=== PATIENT | female | born 1970 | race Caucasian/White ===

== ENCOUNTER 2025-06-27 08:24 | Day surgery (SDC) | payer MEDICARE, MEDICAID, SELFPAY ==
--- OUTSIDE RECORDS SUMMARY | 2025-05-30 17:45 | XMS_ITS | Clinical Summary ---
Author Organization [facility] Address [address] [place] [address] Phone Care Team Providers Care Assistant Manager Retail Name Role Phone Donovan Berry Primary Care Provider [phone] Donovan Berry Unavailable [phone] Medications buprenorphine-n aloxone (Suboxone) 8-2 mg SL film film, SL, daily, Entered: 07/12/20 12:57:00 EST 07/12/2020 Active diazepam (VALIUM ORAL) Entered: 07/12/20 12:56:00 EST 07/12/2020 Active escitalopram (Lexapro) 20 mg tablet mg, tab, PO, daily, Entered: 07/12/20 12:57:00 EST 07/12/2020 Active gabapentin (Neurontin) 800 mg tablet mg, tab, PO, TID, Entered: 07/12/20 12:58:00 EST 07/12/2020 Active insulin regular (HumuLIN R,NovoLIN R) 100 unit/mL injection Dispense 3 mL vial, Subcutaneous, OUT-PT as directed, Special Instructions: Use as directed, Refills: 11, Entered: 07/12/20 12:56:00 EST 07/12/2020 Active levothyroxine sodium (SYNTHROID ORAL) PO, daily, Entered: 07/12/20 12:58:00 EST 07/12/2020 Active Social History Tobacco Use Types Packs/Day Years Used Date Smoking Tobacco: Never Assessed Comments Unknown Sex and Gender Information Value Date Recorded Sex Assigned at Not on file Legal Sex Female 2:57 AM EDT Gender Identity Not on file Sexual Orientation Not on file Plan of Treatment Not on file Care Teams Assistant Manager Retail Relationship Specialty Start Date End Date Donovan Berry [address] [place] [address] PCP - General 09/12/19 Donovan Berry [address] [place] [address] PCP - Clinical PCP 09/12/19
[2025-06-25 09:39] VITALS: BMI 26.1
[2025-06-27] VITALS (10 sets, daily range): BP systolic 104–134; BP diastolic 55–70; PULSE 76–82; RESP 10–20; TEMP 36.1–36.6; O2SAT 96–100
[2025-06-27] MEDS: Lactated Ringers 1,000 ML 100 ML IVCONT (09:31)
[2025-06-27 09:36] LABS: Glucose, Whole Blood 100 mg/dL (60-115)
--- NOTE | 2025-06-27 10:50 | HO.ANESPROP2 ---
Documented by User: Isha Fox NP 06/26/25 09:56 HPI - Anesthesia Eval Consult details Narrative: 55yo F for Bilateral Medial Rectus Eye Muscle Recession Medically optimized per PCP Chronic opioids Anesthesia Pre-Procedure Meds Is the patient on any of the following meds?: GLP1/DPP4 PMFSH Past Medical History Medical History (Updated 06/25/25 @ 09:37 by Fabienne Gamino RN) Tobacco dependence Chronic pain Thyroid disease Depression Vitamin D deficiency Liver disease Asthma Obesity Insomnia Opioid dependence Strabismus Paralytic ileus Hiatal hernia Esophageal dysmotility Complex regional pain syndrome i of left lower limb DVT (deep venous thrombosis) (~01/30/25) Closed fracture of distal phalanx of great toe (~10/10/24) Smoker Multilobar lung infiltrate Gastroparesis due to DM Benzodiazepine withdrawal Legal blindness Polyneuropathy Diabetic foot ulcer Peripheral edema Torsion of ovary Open wound of left foot Chest wall pain Abscess of skin and subcutaneous tissue ADD (attention deficit disorder) Cystitis Fatigue Palpitations Edema of lower extremity Fracture of great toe Diabetic peripheral neuropathy Diabetes Fall Solitary lung nodule Nausea Arthropathy Cellulitis Uterine prolapse Slow transit constipation GERD (gastroesophageal reflux disease) COPD (chronic obstructive pulmonary disease) PVD (peripheral vascular disease) Atherosclerosis of artery Anxiety Gout, arthritis Gout Hyperlipidemia Disorder of nervous system due to type 2 diabetes mellitus Surgical History Surgical History (Updated 06/25/25 @ 09:27 by Fabienne Gamino RN) Hx of laparoscopy Hx of total hysterectomy History of nasal surgery H/O colonoscopy Hx of section Social History Social History Are you a primary career development consultant to a significant other at home: No Do you presently have visiting nurse or other home services: Yes Patient Tobacco Use Status: Current everyday Tobacco user Tobacco use type: Cigarette Cigarette Packs Per Day: 0.5 Cigarettes Per Day: 10.0 Use of substances other than those prescribed or required for medical reasons: No Have you been hit, kicked, punched, or otherwise hurt by someone within the past year? If so, by whom?: No Advance Directives: No Advance Directives Information Provided: Yes Advance Directives on File: No Patient : No : No Poor oral hygiene: Yes Meds Allergies Allergy/AdvReac Type Severity Reaction Status Date / Time adhesive tape Allergy Unknown Verified 06/25/25 08:16 droperidol Allergy Unknown Verified 06/25/25 08:16 insulin glargine (From Allergy Hives Verified 06/25/25 08:16 Lantus U-100 Insulin) insulin lispro (From Humalog Allergy Rash Verified 06/25/25 08:16 Mix) insulin lispro protamine Allergy Rash Verified 06/25/25 08:16 (From Humalog Mix) metoclopramide Allergy Unknown Verified 06/25/25 08:16 Home Medications ?Medication ?Instructions ?Recorded ?Confirmed ?Last Taken ?Type albuterol sulfate 90 mcg/actuation 2 puff inhalation Q4-6H PRN 06/25/25 06/25/25 Unknown History aerosol inhaler (Ventolin HFA) Shortness Of Breath Or Wheezing atorvastatin 20 mg tablet 20 mg PO DAILY 06/25/25 06/25/25 Unknown History cholecalciferol (vitamin D3) 25 25 mcg PO DAILY 06/25/25 06/25/25 Unknown History mcg (1,000 unit) tablet dextroamphetamine-amphetamine 20 1 tab PO QAM 06/25/25 06/25/25 Unknown History mg tablet dextroamphetamine-amphetamine 30 1 tab PO QPM 06/25/25 06/25/25 Unknown History mg tablet diazepam 10 mg tablet 10 mg PO TID PRN Anxiety 06/25/25 06/25/25 Unknown History estradiol 0.01% (0.1 mg/gram) 1 appl vaginal BEDTIME 06/25/25 06/25/25 Unknown History vaginal cream fluconazole 150 mg tablet 150 mg PO QWEEK 06/25/25 06/25/25 Unknown History furosemide 40 mg tablet 80 mg PO DAILY 06/25/25 06/25/25 Unknown History gabapentin 800 mg tablet 800 mg PO QID 06/25/25 06/25/25 Unknown History levothyroxine 100 mcg tablet 100 mcg PO DAILY 06/25/25 06/25/25 Unknown History lidocaine 5 % topical ointment 1 appl topical Q4-6H PRN Pain 06/25/25 06/25/25 Unknown History morphine 15 mg immediate release 15 mg PO QID PRN Pain 06/25/25 06/25/25 Unknown History tablet morphine 60 mg tablet,extended 60 mg PO BID 06/25/25 06/25/25 Unknown History release mupirocin 2 % topical ointment 1 appl topical TID 06/25/25 06/25/25 Unknown History naloxone 4 mg/actuation nasal spray 4 mg intranasal Q2M PRN Opioid 06/25/25 06/25/25 Unknown History Overdose nicotine (polacrilex) 2 mg gum 2 mg buccal Q2H 06/25/25 06/25/25 Unknown History nicotine 21 mg/24 hr daily 1 patch transdermal DAILY 06/25/25 06/25/25 Unknown History transdermal patch omeprazole 40 mg capsule,delayed 40 mg PO BID 06/25/25 06/25/25 Unknown History release ondansetron 4 mg disintegrating 8 mg PO Q12H PRN Nausea 06/25/25 06/25/25 Unknown History tablet polyethylene glycol 3350 17 gram 17 g PO DAILY 06/25/25 06/25/25 Unknown History oral powder packet promethazine 25 mg tablet 25 mg PO Q8-10H PRN Nausea 06/25/25 06/25/25 Unknown History sertraline 25 mg tablet 50 mg PO BEDTIME 06/25/25 06/25/25 Unknown History thiamine HCl (vitamin B1) 100 mg 100 mg PO DAILY 06/25/25 06/25/25 Unknown History tablet tirzepatide 15 mg/0.5 mL 15 mg subcut QWEEK 06/25/25 06/25/25 Unknown History subcutaneous pen injector (Mounjaro) umeclidinium 62.5 mcg-vilanterol 1 ea inhalation DAILY 06/25/25 06/25/25 Unknown History 25 mcg/actuation powdr for inhalation (Anoro Ellipta) zolpidem 10 mg tablet 10 mg PO BEDTIME PRN Insomnia 06/25/25 06/25/25 Unknown History Exam Height,Weight and Vital Signs: Height 5 ft 8 in Weight 78.018 kg Assessment and Plan Assessment Anesthesia Assessment: Chart Reviewed Documented by User: Asia Silverman DO 06/27/25 11:20 HPI - Anesthesia Eval Anesthesia Pre-Procedure Meds Is the patient on any of the following meds?: GLP1/DPP4 [facility] Past Medical History Medical History (Updated 06/25/25 @ 09:37 by Fabienne Gamino RN) Tobacco dependence Chronic pain Thyroid disease Depression Vitamin D deficiency Liver disease Asthma Obesity Insomnia Opioid dependence Strabismus Paralytic ileus Hiatal hernia Esophageal dysmotility Complex regional pain syndrome i of left lower limb DVT (deep venous thrombosis) (~01/30/25) Closed fracture of distal phalanx of great toe (~10/10/24) Smoker Multilobar lung infiltrate Gastroparesis due to DM Benzodiazepine withdrawal Legal blindness Polyneuropathy Diabetic foot ulcer Peripheral edema Torsion of ovary Open wound of left foot Chest wall pain Abscess of skin and subcutaneous tissue ADD (attention deficit disorder) Cystitis Fatigue Palpitations Edema of lower extremity Fracture of great toe Diabetic peripheral neuropathy Diabetes Fall Solitary lung nodule Nausea Arthropathy Cellulitis Uterine prolapse Slow transit constipation GERD (gastroesophageal reflux disease) COPD (chronic obstructive pulmonary disease) PVD (peripheral vascular disease) Atherosclerosis of artery Anxiety Gout, arthritis Gout Hyperlipidemia Disorder of nervous system due to type 2 diabetes mellitus Family History Family history of problems with anesthesia: No Surgical History Surgical History (Updated 06/25/25 @ 09:27 by Fabienne Gamino RN) Hx of laparoscopy Hx of total hysterectomy History of nasal surgery H/O colonoscopy Hx of section History of Problems with Anesthesia: No Social History Social History Are you a primary career development consultant to a significant other at home: No Do you presently have visiting nurse or other home services: Yes Patient Tobacco Use Status: Current everyday Tobacco user Tobacco use type: Cigarette Cigarette Packs Per Day: 0.5 Cigarettes Per Day: 10.0 Use of substances other than those prescribed or required for medical reasons: No Have you been hit, kicked, punched, or otherwise hurt by someone within the past year? If so, by whom?: No Advance Directives: No Advance Directives Information Provided: Yes Advance Directives on File: No Patient : No : No Poor oral hygiene: Yes Meds Allergies Allergy/AdvReac Type Severity Reaction Status Date / Time adhesive tape Allergy Unknown Verified 06/25/25 08:16 droperidol Allergy Unknown Verified 06/25/25 08:16 insulin glargine (From Allergy Hives Verified 06/25/25 08:16 Lantus U-100 Insulin) insulin lispro (From Humalog Allergy Rash Verified 06/25/25 08:16 Mix) insulin lispro protamine Allergy Rash Verified 06/25/25 08:16 (From Humalog Mix) metoclopramide Allergy Unknown Verified 06/25/25 08:16 Home Medications ?Medication ?Instructions ?Recorded ?Confirmed ?Last Taken ?Type albuterol sulfate 90 mcg/actuation 2 puff inhalation Q4-6H PRN 06/25/25 06/25/25 Unknown History aerosol inhaler (Ventolin HFA) Shortness Of Breath Or Wheezing atorvastatin 20 mg tablet 20 mg PO DAILY 06/25/25 06/25/25 Unknown History cholecalciferol (vitamin D3) 25 25 mcg PO DAILY 06/25/25 06/25/25 Unknown History mcg (1,000 unit) tablet dextroamphetamine-amphetamine 20 1 tab PO QAM 06/25/25 06/25/25 Unknown History mg tablet dextroamphetamine-amphetamine 30 1 tab PO QPM 06/25/25 06/25/25 Unknown History mg tablet diazepam 10 mg tablet 10 mg PO TID PRN Anxiety 06/25/25 06/25/25 Unknown History estradiol 0.01% (0.1 mg/gram) 1 appl vaginal BEDTIME 06/25/25 06/25/25 Unknown History vaginal cream fluconazole 150 mg tablet 150 mg PO QWEEK 06/25/25 06/25/25 Unknown History furosemide 40 mg tablet 80 mg PO DAILY 06/25/25 06/25/25 Unknown History gabapentin 800 mg tablet 800 mg PO QID 06/25/25 06/25/25 Unknown History levothyroxine 100 mcg tablet 100 mcg PO DAILY 06/25/25 06/25/25 Unknown History lidocaine 5 % topical ointment 1 appl topical Q4-6H PRN Pain 06/25/25 06/25/25 Unknown History morphine 15 mg immediate release 15 mg PO QID PRN Pain 06/25/25 06/25/25 Unknown History tablet morphine 60 mg tablet,extended 60 mg PO BID 06/25/25 06/25/25 Unknown History release mupirocin 2 % topical ointment 1 appl topical TID 06/25/25 06/25/25 Unknown History naloxone 4 mg/actuation nasal spray 4 mg intranasal Q2M PRN Opioid 06/25/25 06/25/25 Unknown History Overdose nicotine (polacrilex) 2 mg gum 2 mg buccal Q2H 06/25/25 06/25/25 Unknown History nicotine 21 mg/24 hr daily 1 patch transdermal DAILY 06/25/25 06/25/25 Unknown History transdermal patch omeprazole 40 mg capsule,delayed 40 mg PO BID 06/25/25 06/25/25 Unknown History release ondansetron 4 mg disintegrating 8 mg PO Q12H PRN Nausea 06/25/25 06/25/25 Unknown History tablet polyethylene glycol 3350 17 gram 17 g PO DAILY 06/25/25 06/25/25 Unknown History oral powder packet promethazine 25 mg tablet 25 mg PO Q8-10H PRN Nausea 06/25/25 06/25/25 Unknown History sertraline 25 mg tablet 50 mg PO BEDTIME 06/25/25 06/25/25 Unknown History thiamine HCl (vitamin B1) 100 mg 100 mg PO DAILY 06/25/25 06/25/25 Unknown History tablet tirzepatide 15 mg/0.5 mL 15 mg subcut QWEEK 06/25/25 06/25/25 Unknown History subcutaneous pen injector (Maxxunyaoro) umeclidinium 62.5 mcg-vilanterol 1 ea inhalation DAILY 06/25/25 06/25/25 Unknown History 25 mcg/actuation powdr for inhalation (Anoro Ellipta) zolpidem 10 mg tablet 10 mg PO BEDTIME PRN Insomnia 06/25/25 06/25/25 Unknown History Exam Exam Date and Time: 06/27/25 1050 Height,Weight and Vital Signs: Height 5 ft 8 in Weight 78.018 kg Vital Signs Temperature 97.8 F 06/27/25 09:29 Pulse Rate 82 06/27/25 09:29 Respiratory Rate 16 06/27/25 09:29 Blood Pressure 134/70 06/27/25 09:29 Pulse Oximetry 100 06/27/25 09:29 Oxygen Delivery Method Room Air 06/27/25 09:29 Temperature 97.8 F 06/27/25 09:29 Pulse Rate 82 06/27/25 09:29 Respiratory Rate 16 06/27/25 09:29 Blood Pressure 134/70 06/27/25 09:29 Pulse Oximetry 100 06/27/25 09:29 Oxygen Delivery Method Room Air 06/27/25 09:29 Airway Mallampati Class: I TM Dist: >3cm Neck ROM: Limited Loose/Missing/Broken Teeth: Yes (poor dentition - multiple broken and loose teeth) Heart: S1S2 Lungs: CTAB Assessment and Plan Assessment Anesthesia Assessment: Anesthesia Plan Discussed and Chart Reviewed Final Anesthetic Review Family History of Problems with Anesthesia: No History of Problems with Anesthesia: No ASA Class: III Final Preanesthetic Review: No Changes in Pt Med Stat, Meds/Allgs Chart Reviewed, Consent Obtained/Reviewed and Anes Risks/Benef Reviewed Patient Risk: Intermediate Procedure Risk: Low Anesthetic Plan Anesthetic Plan: GA and Agree w/ Assess. and Plan Disposition: Standard PACU
--- NOTE | 2025-06-27 15:14 | HO.OPHTHAL ---
Ophthalmology Operative Note Date of Service: 06/27/25 Narrative: Preoperative diagnosis exotropia. Postoperative diagnosis same. Procedures 1. A resection of right medial rectus 4 mm 2. Recession of right lateral rectus [address] Avila. Anesthesia general. Complications none. The patient was brought to the operating room placed under general anesthesia. The eyes were prepped and draped in the usual sterile ophthalmic fashion. A lid speculum was placed in the right eye and a peritomy was created around the lateral rectus muscle. The muscle was hooked and secured with a double-armed Vicryl suture. It was disinserted from the globe and reattached to a position 4 mm behind the original insertion. Conjunctiva was closed with interrupted Vicryl sutures. A peritomy was then created around the medial rectus muscle. The muscle was hooked and dissected free of its overlying fascial attachments. A 4 mm resection was marked off with cautery the resection point was secured with a double-armed Vicryl suture. The distal muscle was resected and the resection point drawn forward to the original insertion with the Vicryl suture. Conjunctiva was closed with interrupted Vicryl sutures. The patient was then awoken from general anesthesia and discharged to postoperative recovery in good condition.
== END 2025-06-27 13:03 | disposition home or self-care (01) ==
PROVIDERS: PCP Nurse Practitioner Family; Visit Provider Ophthalmology
PROC: (CPT 67312; principal; 2025-06-27 12:00)
DX: H53.2 Diplopia (principal); H50.10 Unspecified exotropia; G90.522 Complex regional pain syndrome I of left lower limb; R60.0 Localized edema; E11.621 Type 2 diabetes mellitus with foot ulcer; L97.509 Non-pressure chronic ulcer of other part of unspecified foot with unspecified severity; E11.42 Type 2 diabetes mellitus with diabetic polyneuropathy; M10.9 Gout, unspecified; E78.5 Hyperlipidemia, unspecified; I73.9 Peripheral vascular disease, unspecified; K76.0 Fatty (change of) liver, not elsewhere classified; J44.9 Chronic obstructive pulmonary disease, unspecified; F32.A Depression, unspecified; F41.9 Anxiety disorder, unspecified; L23.1 Allergic contact dermatitis due to adhesives; Z79.4 Long term (current) use of insulin; Z79.85 Long-term (current) use of injectable non-insulin antidiabetic drugs; Z79.891 Long term (current) use of opiate analgesic; Z79.899 Other long term (current) drug therapy; Z88.8 Allergy status to other drugs, medicaments and biological substances; F17.210 Nicotine dependence, cigarettes, uncomplicated; Z98.890 Other specified postprocedural states
CPT/HCPCS: 67312; 82947; J0131; J0330; J1100; J1171; J1596; J1885; J2003; J2250; J2405; J2704; J3010